=== PATIENT | female | born 1965 | race Caucasian/White ===

== ENCOUNTER → 2019-06-17 12:55 | Outpatient (CLI) | payer OTHER, SELFPAY ==
--- NOTE | 2019-06-17 13:45 | MRI_ITS ---
STUDY: BILATERAL BREAST MR WITHOUT AND WITH CONTRAST REASON FOR EXAM: Female, 53 years old. Family history of breast cancer. Patient's mother was diagnosed with DCIS in her late 50s. Patient had a prior left breast lumpectomy 30 years ago for a benign process. Extremely dense breast tissue. High risk for malignancy. TECHNIQUE: Multi-sequence multi-echo imaging of both breasts was performed with a dedicated breast coil. T1-weighted and T2-weighted images were performed before the administration of contrast. T1-weighted images were also performed after the administration of 19 IV Dotarem without complications. COMPARISON: Mammogram dated 02/14/2019 FINDINGS: RIGHT BREAST: The breast tissue is markedly dense with minimal background enhancement. There are multiple masses seen throughout the right breast in different quadrants. Some of these appear to be cystic and some are solid. Due to the multiplicity, dedicated ultrasonography of the entire right breast is recommended for further evaluation. None of the masses demonstrate abnormal enhancement kinetics based on MRI criteria however, further workup with ultrasound is recommended for further evaluation. LEFT BREAST: The breast tissue is markedly dense with minimal background enhancement. There are multiple masses seen throughout the left breast in different quadrants. Some of these appear to be cystic and some are solid. Due to the multiplicity, dedicated ultrasonography of the entire left breast is recommended for further evaluation. None of the masses demonstrate abnormal enhancement kinetics based on MRI criteria however, further workup with ultrasound is recommended for further evaluation. There are no enlarged or abnormal lymph nodes. There is no abnormality in the visualized regions of the chest or liver. MRI/Breast Bilateral W/O and W IMPRESSION: Dedicated ultrasonography of the entire right and left breast is recommended for further evaluation of the masses. CATEGORY: BIRADS Category 0: Incomplete. Need additional imaging evaluation. A letter regarding these results will be sent to the patient by the facility within 30 days. Electronically Signed: Merissa Richards DO at 11:15 EDT Tel , Service support ,
== END ==
DX: N63.20 Unspecified lump in the left breast, unspecified quadrant (principal); R92.8 Other abnormal and inconclusive findings on diagnostic imaging of breast
CPT/HCPCS: 77049; A9575; A4216; C8908

== ENCOUNTER → 2019-07-18 10:14 | Outpatient (CLI) | payer OTHER, SELFPAY ==
--- NOTE | 2019-07-18 10:37 | US_ITS ---
STUDY: ULTRASOUND BREAST - BILATERAL REASON FOR EXAM: Female, 53 years old. Recent MRI of the breasts suggestive of multiple bilateral pulmonary nodules. TECHNIQUE: Axial and longitudinal images of the BILATERAL breast were performed with a high resolution ultrasound transducer. COMPARISON: Comparison is made with prior MRI of the breasts dated June 17, 2019. FINDINGS: BILATERAL Breast: Multiple cysts are seen in both breasts. The largest cyst in the right breast measures 1.4 sinus by 1.6 x 1.1 cm. This is at the 3:00 position breast at 6 cm from the nipple. This also evidence of a 7 mm x 8 mm x 6 mm well-defined hypoechoic nodule at the 11:00 position of the breast at 2 cm from nipple. This may represent a small fibroadenoma. Tissue diagnosis is recommended. Partial assessment of the left breast was performed due to the patient aborted the exam due to prior commitment. There is a dominant cyst in the left breast measuring 2.4 cm by 2.4 cm by 1.6 cm. This is at the 3:00 position of the breast at 13 cm from nipple. There is also evidence of a cluster of small cysts measuring 1.7 cm x 2.1 cm x 2 centimeters at the 3:00 position of the breast at 9 cm from nipple. It is also evidence of a 4 mm x 4 mm x 4 mm well-defined hypoechoic solid nodule at the 8:00 position of breast at 7 cm from nipple. A biopsy is recommended for further evaluation. US/Breast Complete Bilateral IMPRESSION: Multiple cysts in both breasts as described. Well-defined hypoechoic solid nodules in both breasts as described. Biopsy is recommended. ASSESSMENT CATEGORY: BIRADS Category 4: Suspicious - Biopsy Should Be Considered. A letter regarding these results will be sent to the patient by the facility within 30 days. Electronically Signed: Kimo Caro, at 8:40 EDT , Service support ,
== END ==
DX: N60.02 Solitary cyst of left breast (principal); N60.01 Solitary cyst of right breast
CPT/HCPCS: 76641

== ENCOUNTER → 2020-06-17 | Outpatient (CLI) | payer OTHER, SELFPAY ==
[2014-05-25 09:14] VITALS: BMI 25.8
[2020-06-17 17:56] LABS: Erythrocyte Sedimentation Rate < 1 mm/hr (0-30)
[2020-06-17 17:59] LABS: Absolute Lymphocyte Count 1.97 X10^3/uL (0.83-4.51); Absolute Neutrophil Count 4.6 X10^3/uL (2.0-7.7); Basophil# 0.04 X10^3/uL; Basophil% 0.5 % (0-1); Eosinophils% 1.4 % (0-5); Hematocrit 38.9 % (37-47); Hemoglobin 13.1 g/dL (12.0-15.0); Lymphocyte # 1.97 X10^3/ul (4.0); Lymphocyte % 26.8 % (19-41); Mean Corp Hgb Conc 33.7 g/dL (32-36); Mean Corpuscular Hgb 30.4 pg (27.0-32.0); Mean Corpuscular Volume 90.3 fL (81-99); Mean Platelet Vol. 10.5 fl (6.2-12.0); Monocyte# 0.62 X10^3/uL; Monocyte% 8.4 % (0-10); NRBC Flagged by Analyzer 0 % (0-5); Neutrophil # 4.56 X10^3/uL (2.7-7.7); Neutrophil % 62.2 % (47-70); Platelet Count 220 K/mm3 (150-450); RBC Distribution Width CV 13.4 % (11.6-14.6); RBC Distribution Width SD 44.2 fl (35.1-43.9); Red Blood Count 4.31 M/mm3 (4.2-5.4); White Blood Count 7.3 K/mm3 (4.4-11.0)
[2020-06-17 18:38] LABS: CRP 3.21 mg/L (0.0-3.0)
[2020-06-17 19:20] LABS: Appearance/Body Fluid TURBID; Body Fluid QC Type(s) BF3Q; Color/Body Fluid RED
[2020-06-17 20:06] LABS: Lymphocytes 18 %; Monocytes 42 %; Source- Body Fluid OTHER
[2020-06-17 20:14] LABS: Neutrophil (Segs) 40 %
[2020-06-18 12:10] LABS: Pathologist Comment/Body Fluid Reviewed
== END | disposition home or self-care (01) ==
LOC: LABSPEC 17:00
PROVIDERS: Referring Provider Specialist; Visit Provider Specialist
DX: Z96.652 Presence of left artificial knee joint (principal)
CPT/HCPCS: 36415; 85025; 85652; 86140; 87015; 87070; 87075; 87101; 87116; 87205; 87206; 89050

== ENCOUNTER → 2021-02-01 12:50 | Outpatient (CLI) | payer OTHER, SELFPAY ==
--- NOTE | 2021-02-01 13:45 | MRI_ITS ---
STUDY: BILATERAL BREAST MR WITHOUT AND WITH CONTRAST REASON FOR EXAM: Female, 55 years old. Dense breast tissue. Increased risk for breast cancer. 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 Left lumpectomy 30 years ago for benign process. Hypoechoic nodules in both breasts on ultrasound performed 07/18/2019. TECHNIQUE: Multi-sequence multi-echo imaging of both breasts was performed with a dedicated breast coil. T1-weighted and T2-weighted images were performed before the administration of contrast. T1-weighted images were also performed after the administration of 17ml Dotarem via IV without complications. Patient refused sagittal sequences due to claustrophobia and pain. COMPARISON: Bilateral mammograms dated 07/15/2020 and bilateral breast ultrasound dated 07/06/2020. Prior breast MRIs study dated 06/17/2019. FINDINGS: RIGHT BREAST: The breast tissue is heterogeneously dense with marked background enhancement which can lower the sensitivity of breast MRI for detection of small masses or small areas of non-mass enhancement. There are no abnormal enhancing masses or areas of non-mass enhancement in the right breast. LEFT BREAST: The breast tissue is heterogeneously dense with marked background enhancement which can lower the sensitivity of breast MRI for detection of small masses or small areas of non-mass enhancement. There are no abnormal enhancing masses or areas of non-mass enhancement in the left breast. There are no enlarged or abnormal lymph nodes. There is no abnormality in the visualized regions of the chest or liver. MRI/Breast Bilateral W/O and W IMPRESSION: Stable breast MRI study with contrast. No suspicious lesions identified. Alternating yearly mammograms with breast MRI with contrast would be appropriate, considering the patient''s history. CATEGORY: BIRADS Category 2: Benign. A letter regarding these results will be sent to the patient by the facility within 30 days. Electronically Signed: Abel Erwin MD at 16:36 EDT , Service support ,
== END ==
DX: Z12.31 Encounter for screening mammogram for malignant neoplasm of breast (principal); N63.10 Unspecified lump in the right breast, unspecified quadrant; N63.20 Unspecified lump in the left breast, unspecified quadrant
CPT/HCPCS: 77049; A9575; C8908